=== PATIENT | male | born 1955 | race Caucasian/White ===

== ENCOUNTER 2021-09-21 15:41 | Emergency (ER) | payer OTHER ==
[2021-09-21 15:51] VITALS: BP 147/77; PULSE 58; TEMP 98; BMI 30.3
[2021-09-21] MEDS ORDERED: MAG HYDROX/AL HYDROX/SIMETH 30 ML UNIT-DOSE CUP PO ONE (18:01)
[2021-09-21] MEDS ORDERED: FAMOTIDINE 20 MG/50 ML IVPB 20 MG/50 ML MG IVPB ONE ×2 (18:01→18:12)
[2021-09-21] MEDS ORDERED: SODIUM CHLORIDE 0.9% 500 ML INFUS.BAG IV ONE (18:01)
[2021-09-21] MEDS ORDERED: MAG HYDROX/AL HYDROX/SIMETH 30 ML UNIT-DOSE CUP ONE (18:12)
[2021-09-21 18:22] LABS: BASO % 0.6 % (0-2.0); EOS % 4.1 % (0-4.5); HEMATOCRIT 38.9 % (35.4-49); HEMOGLOBIN 13.3 GM/dL (11.7-16.9); LYMPH % 31.6 % (8-40); MCHC 34.2 g/dl (32.0-35.9); MEAN PLT VOLUME 7.1 fl (7.5-11.1); MONO % 7.3 % (3.8-10.2); NEUT % 56.4 % (42.8-82.8); PLATELET COUNT 264 10^3/uL (134-434); RBC 4.58 M/mm3 (4.00-5.60); RDW 14.2 % (11.9-15.9); WHITE BLOOD COUNT 5.9 K/mm3 (4.0-10.0)
[2021-09-21 18:38] LABS: URINE APPEARANCE CLEAR; URINE BILIRUBIN NEGATIVE (NEGATIVE); URINE COLOR YELLOW; URINE GLUCOSE (UA) NEGATIVE (NEGATIVE); URINE KETONE TRACE (NEGATIVE); URINE LEUK ESTERASE NEGATIVE (NEGATIVE); URINE NITRITE NEGATIVE (NEGATIVE); URINE PROTEIN NEGATIVE (NEGATIVE); URINE UROBILINOGEN 0.2 mg/dL (0.2-1.0)
[2021-09-21 18:48] LABS: CHLORIDE 106 mmol/L (98-107); SODIUM 142 mmol/L (136-145)
[2021-09-21 18:50] LABS: CALCIUM 8.8 mg/dL (8.5-10.1)
[2021-09-21 18:51] LABS: ALBUMIN 3.7 g/dl (3.4-5.0); ANION GAP 9 MMOL/L (8-16); CO2 26 mmol/L (21-32); GLUCOSE,RANDOM 96 mg/dL (74-106); LIPASE 112 U/L (73-393)
[2021-09-21 18:54] LABS: CREATININE 0.8 mg/dL (0.55-1.3); SGOT/AST 41 U/L (15-37); SGPT/ALT 40 U/L (13-61)
[2021-09-21 18:55] LABS: BILIRUBIN,TOTAL 0.6 mg/dL (0.2-1); TOT PROT 6.8 g/dl (6.4-8.2)
[2021-09-21 18:57] LABS: ALK PHOS 49 U/L (45-117)
[2021-09-21] MEDS ORDERED: MAGNESIUM CITRATE 300 ML BOTTLE PO ONE (22:06)
[2021-09-21] MEDS ORDERED: MAGNESIUM CITRATE 300 ML BOTTLE ONE (22:11)
== END 2021-09-21 22:59 | disposition home or self-care (01) ==
LOC: JER 15:41
PROC: 3E033GC Introduction of Other Therapeutic Substance into Peripheral Vein, Percutaneous Approach (ICD-10-PCS; principal; 2021-09-21)
DX: R10.9 Unspecified abdominal pain (principal)
CPT/HCPCS: 36415; 74177-TC; 80053; 81003; 82550; 82553; 83605; 83690; 84484; 85025; 87086; 93005; 93010; 99285-25; Q9967

== ENCOUNTER 2021-09-22 07:52 | Emergency (ER) | payer OTHER ==
[2021-09-22 08:18] VITALS: TEMP 97.9; BMI 30.3
[2021-09-22] MEDS ORDERED: LORazepam 2 MG TABLET PO ONE (10:11)
[2021-09-22] MEDS ORDERED: ONDANSETRON 4 MG/2 ML VIAL IVPB ONE (10:12)
[2021-09-22] MEDS ORDERED: FAMOTIDINE 20 MG/50 ML IVPB 20 MG in PREMIX 50 IVPB ONE (10:12)
[2021-09-22] MEDS ORDERED: SODIUM CHLORIDE 0.9% 500 ML INFUS.BAG IV ONE (10:12)
[2021-09-22] MEDS ORDERED: LORazepam 1 MG TABLET ONE (11:00)
[2021-09-22] MEDS ORDERED: ONDANSETRON 4 MG/2 ML VIAL ONE (11:01)
[2021-09-22] MEDS ORDERED: FAMOTIDINE 20 MG/50 ML IVPB 20 MG/50 ML MG IVPB ONE (11:01)
[2021-09-22 12:03] LABS: BASO % 0.5 % (0-2.0); EOS % 1.7 % (0-4.5); HEMATOCRIT 38.2 % (35.4-49); HEMOGLOBIN 13.6 GM/dL (11.7-16.9); LYMPH % 25.6 % (8-40); MCHC 35.7 g/dl (32.0-35.9); MEAN CELL VOLUME 84.1 fl (80-96); MONO % 7.2 % (3.8-10.2); PLATELET COUNT 271 10^3/uL (134-434); RBC 4.55 M/mm3 (4.00-5.60); WHITE BLOOD COUNT 4.6 K/mm3 (4.0-10.0)
[2021-09-22 12:42] LABS: CHLORIDE 108 mmol/L (98-107); SODIUM 142 mmol/L (136-145)
[2021-09-22 12:44] LABS: ALBUMIN 3.8 g/dl (3.4-5.0); ANION GAP 8 MMOL/L (8-16); BLOOD UREA NITROGEN 13.7 mg/dL (7-18); CO2 26 mmol/L (21-32); GLUCOSE,RANDOM 123 mg/dL (74-106)
[2021-09-22 12:46] LABS: LIPASE 288 U/L (73-393)
[2021-09-22 12:47] LABS: CREATININE 0.7 mg/dL (0.55-1.3); SGOT/AST 35 U/L (15-37); SGPT/ALT 40 U/L (13-61)
[2021-09-22 12:49] LABS: BILIRUBIN,TOTAL 0.7 mg/dL (0.2-1)
[2021-09-22 12:50] LABS: ALK PHOS 50 U/L (45-117)
[2021-09-22 13:35] VITALS: BP 126/75; PULSE 61
== END 2021-09-22 13:35 | disposition home or self-care (01) ==
LOC: JER 07:52
PROC: 3E033NZ Introduction of Analgesics, Hypnotics, Sedatives into Peripheral Vein, Percutaneous Approach (ICD-10-PCS; principal; 2021-09-22)
PROC: 3E033GC Introduction of Other Therapeutic Substance into Peripheral Vein, Percutaneous Approach (ICD-10-PCS; 2021-09-22)
DX: K30 Functional dyspepsia (principal)
CPT/HCPCS: 36415; 80053; 82550; 82553; 83690; 84484; 85025; 93005; 93010; 99284-25

== ENCOUNTER 2021-12-12 04:28 | Day surgery (SDC) | payer OTHER ==
[2021-12-08 13:07] VITALS: BMI 29.0
[2021-12-12] MEDS ORDERED: LIDOCAINE HCL/PF 2% SDV 5ML VIAL ONE (07:22)
[2021-12-12] MEDS ORDERED: KETAMINE HCL 200 MG/20 ML VIAL ONE (07:22)
[2021-12-12] MEDS ORDERED: SUCCINYLCHOLINE CHLORIDE 200 MG/10 ML SYRINGE ONE (07:22)
[2021-12-12] MEDS ORDERED: PROPOFOL 20 ML ONE ×2 (07:22)
[2021-12-12] MEDS ORDERED: KETOROLAC TROMETHAMINE 30 MG/1 ML VIAL ONE (07:22)
[2021-12-12] MEDS ORDERED: DEXAMETHASONE SOD PHOSPHATE 4 MG/1 ML VIAL ONE (07:22)
[2021-12-12] MEDS ORDERED: MIDAZOLAM HCL 2 MG/2 ML SINGLE DOSE VIAL ONE ×3 (07:22→07:32)
[2021-12-12] MEDS ORDERED: BUPIVACAINE HCL/PF 0.5% (5MG/ML) 10 ML VIAL ONE (07:24)
[2021-12-12] MEDS ORDERED: ROPIVACAINE HCL 0.5% 30ML VIAL ONE (07:31)
[2021-12-12] MEDS ORDERED: DEXAMETHASONE SOD PHOSPHATE 10 MG/1 ML VIAL ONE (07:31)
[2021-12-12] MEDS ORDERED: ceFAZolin SODIUM 1 GM VIAL ONE (07:40)
[2021-12-12] MEDS ORDERED: SODIUM CHLORIDE 0.9% P/F 10 ML VIAL IJ ONE (07:40)
[2021-12-12] MEDS ORDERED: SEVOFLURANE 250 ML BTL ONE (07:41)
[2021-12-12] MEDS ORDERED: CLINDAMYCIN PHOSPHATE 600 MG/4 ML VIAL ONE (07:49)
[2021-12-12] MEDS ORDERED: ROCURONIUM BROMIDE 50 MG/5 ML SYRINGE ONE (07:50)
[2021-12-12] MEDS ORDERED: NEOSTIGMINE METHYLSULFATE 0.5 MG/ML - 10 ML MDV ONE (07:51)
[2021-12-12] MEDS ORDERED: ceFAZolin SODIUM 1 GM VIAL IVPB ONE (08:00)
[2021-12-12] MEDS ORDERED: CLINDAMYCIN 900 MG PREMIX BAG IVPB ONE (08:00)
[2021-12-12] MEDS ORDERED: oxyCODONE HCL 5 MG TABLET PO PRN (08:35)
[2021-12-12] MEDS ORDERED: ONDANSETRON 4 MG/2 ML VIAL IVPUSH PRN (08:35)
[2021-12-12] MEDS ORDERED: LACTATED RINGERS SOLUTION 1,000 ML IV SCH (08:45)
[2021-12-12] MEDS ORDERED: GLYCOPYRROLATE 0.2 MG/1 ML VIAL ONE (08:50)
[2021-12-12] MEDS ORDERED: ONDANSETRON 4 MG/2 ML VIAL ONE (10:26)
[2021-12-12 13:54] VITALS: BP 131/69; PULSE 78; TEMP 98
== END 2021-12-12 13:45 | disposition home or self-care (01) ==
LOC: JASU-SURG 04:28
PROVIDERS: ATTEND Surgery
PROC: 0YU60JZ Supplement Left Inguinal Region with Synthetic Substitute, Open Approach (ICD-10-PCS; principal; 2021-12-12 08:00)
DX: K40.90 Unilateral inguinal hernia, without obstruction or gangrene, not specified as recurrent (principal)
CPT/HCPCS: 94760; J1100